=== PATIENT | male | born 1960 | race Caucasian/White ===

== ENCOUNTER → 2021-04-24 | Outpatient (CLI) | payer MEDICARE, OTHER ==
[2021-04-24 11:37] LABS: Basophils # (auto) 0.1 10 ^3/uL (0-0.2); Eosinophils # (auto) 0.3 10 ^3/uL (0-0.8); Eosinophils % (auto) 4.3 % (0.0-7.0); Hematocrit 45.6 % (41.0-53.0); Hemoglobin 15.3 g/dL (13.5-17.5); Lymphocytes % (auto) 15.6 % (10.0-50.0); Mean Corpuscular Hemoglobin 28.8 pg (28.0-32.0); Mean Corpuscular Hgb Conc. 33.7 g/dL (32.0-36.0); Mean Corpuscular Volume 85.6 fL (80.0-100.0); Monocytes # (auto) 0.6 10 ^3/uL (0-1.3); Monocytes % (auto) 9.5 % (0.0-12.0); Neutrophils # (auto) 4.4 10 ^3/uL (1.6-8.6); Neutrophils % (auto) 69.6 % (37.0-80.0); Nucleated Red Blood Cells % 0.2 %; Red Blood Cells 5.32 10^6/uL (4.5-5.90); Red Cell Distribution Width 15.4 % (11.8-14.3); White Blood Cell 6.3 10^3/uL (4.4-10.8)
[2021-04-24 11:59] LABS: Free T4 (Free Thyroxine) 1.21 ng/dL (0.89-1.76)
[2021-04-24 12:00] LABS: Prostate Specific Antigen 0.31 ng/mL (0.0-4.0)
[2021-04-24 14:25] LABS: Albumin 3.7 g/dL (3.4-5.0); Calcium 8.9 mg/dL (8.5-10.1); Potassium 4.3 mmol/L (3.5-5.1)
[2021-04-24 14:29] LABS: Bilirubin, Total 0.4 mg/dL (0.2-1.0); Total Protein 7.8 g/dL (6.4-8.2)
== END | disposition home or self-care (01) ==
LOC: LAB 08:00
PROVIDERS: ATTEND Internal Medicine Cardiovascular Disease
DX: C61 Malignant neoplasm of prostate (principal); D51.3 Other dietary vitamin B12 deficiency anemia; D64.9 Anemia, unspecified; E55.9 Vitamin D deficiency, unspecified; I10 Essential (primary) hypertension; R00.2 Palpitations; R53.1 Weakness; R30.0 Dysuria; E11.9 Type 2 diabetes mellitus without complications
CPT/HCPCS: 36415; 80053; 80061; 82306; 82607; 83036; 84153; 84403; 84439; 84443; 85025

== ENCOUNTER 2021-11-05 09:47 | Emergency (ER) | payer MEDICARE, OTHER ==
[~2021-11-05] VITALS: Ht 193 cm; Wt 136.1 kg
[2021-11-05 10:37] VITALS: BP 158/65
[2021-11-05 11:24] LABS: Basophils # (auto) 0 10 ^3/uL (0-0.2); Basophils % (auto) 0.9 % (0.0-2.0); Eosinophils # (auto) 0.1 10 ^3/uL (0-0.8); Eosinophils % (auto) 2.3 % (0.0-7.0); Hematocrit 45.7 % (41.0-53.0); Hemoglobin 15.2 g/dL (13.5-17.5); Lymphocytes # (auto) 0.9 10 ^3/uL (0.4-5.4); Lymphocytes % (auto) 16.3 % (10.0-50.0); Mean Corpuscular Hemoglobin 27.6 pg (28.0-32.0); Mean Corpuscular Hgb Conc. 33.3 g/dL (32.0-36.0); Mean Corpuscular Volume 83.1 fL (80.0-100.0); Monocytes # (auto) 0.6 10 ^3/uL (0-1.3); Monocytes % (auto) 10.7 % (0.0-12.0); Neutrophils # (auto) 3.7 10 ^3/uL (1.6-8.6); Neutrophils % (auto) 69.8 % (37.0-80.0); Nucleated Red Blood Cells % 0.2 %; Red Cell Distribution Width 15.8 % (11.8-14.3); White Blood Cell 5.3 10^3/uL (4.4-10.8)
[2021-11-05 11:46] LABS: Albumin 3.7 g/dL (3.4-5.0); BUN/Creatinine Ratio 13.6; Calcium 8.9 mg/dL (8.5-10.1); Potassium 5.2 mmol/L (3.5-5.1)
[2021-11-05 11:55] LABS: Bilirubin, Total 0.5 mg/dL (0.2-1.0); Total Protein 7.1 g/dL (6.4-8.2)
== END 2021-11-05 12:01 | disposition home or self-care (01) ==
LOC: EDUNIT# 09:47 → EDBD 09:47 → ER 09:47
DX: I82.401 Acute embolism and thrombosis of unspecified deep veins of right lower extremity (principal); Z91.81 History of falling
CPT/HCPCS: 36415; 80053; 84484; 85025; 93005; 93971